=== PATIENT | female | born 1990 | race Hispanic/Latino ===

== ENCOUNTER 2024-09-03 05:09 | Inpatient (IN) | payer MEDICAID, OTHER, SELFPAY ==
[2024-09-03] MEDS ORDERED: Bicitra 30 ML UDCUP PO PRN (05:15)
[2024-09-03] MEDS ORDERED: Tranexamic Acid 1,000 MG/10 ML VIAL IVP PRN (05:15)
[2024-09-03] MEDS ORDERED: CEFAZOLIN 3 GM in Sodium Chloride 0.9% 100 ML IVPB SCH (05:15)
[2024-09-03] MEDS ORDERED: Ondansetron PF 4 MG/2 ML Vial IVP PRN ×4 (05:15→11:58)
[2024-09-03] MEDS ORDERED: Diphenoxylate HCl/Atropine Tablet PO PRN (05:15)
[2024-09-03] MEDS ORDERED: Carboprost 250 MCG/ML AMP IM PRN (05:15)
[2024-09-03] MEDS ORDERED: hydrALAZINE 20 MG/ML VIAL SLOW IVP PRN ×2 (05:15→11:58)
[2024-09-03] MEDS ORDERED: Promethazine HCl 25 MG/ML VIAL IM PRN ×3 (05:15→11:58)
[2024-09-03] MEDS ORDERED: Oxytocin 30 units/NS 500 ML 500 ML IV SCH (05:15)
[2024-09-03] MEDS ORDERED: Lactated Ringer's 1,000 ML IV SCH (05:15)
[2024-09-03] MEDS ORDERED: Misoprostol 200 MCG TAB PR PRN (05:15)
[2024-09-03] MEDS ORDERED: Methylergonovine 0.2 MG/ML VIAL IM PRN (05:15)
[2024-09-03] MEDS ORDERED: Azithromycin 500 MG in Sodium Chloride 0.9% 250 ML 250 ML IVPB SCH (06:15)
[2024-09-03 06:28] VITALS: BMI 42.1
[2024-09-03 06:29] LABS: Hematocrit 39.2 % (34.9-44.5); Hemoglobin 13.7 g/dL (12.0-15.5); Mean Corpuscular HGB CONC 34.9 g/dL (32.0-36.0); Mean Corpuscular Hemoglobin 30.5 pg (27.0-33.0); Mean Corpuscular Volume 87.3 fL (81.6-98.3); Mean Platelet Volume 10.8 fL (7.4-10.4); Platelet Count 183 10x3/uL (150-450); RBC Distribution Width 14.4 % (11.5-14.5); Red Blood Cell (RBC) Count 4.49 10x6/uL (3.90-5.03); White Blood Cell (WBC) Count 5.25 10x3/uL (3.5-10.5)
[2024-09-03] MEDS: Famotidine/PF 20 mg/2ml Vial SLOW IVP PRN (07:03)
[2024-09-03 07:08] LABS: HBsAg Index 0.16 S/CO (0-0.99); Hep B Surf Ag - L&D Non-Reactive S/CO (NonReactive)
[2024-09-03 07:09] LABS: Syphilis Antibody Nonreactive (Nonreactive); Syphilis Antibody Index 0.06 S/CO (<1.00 Non-Reactive)
[2024-09-03 07:10] LABS: HIV (1/2) Antibody/Antigen Non-Reactive (NonReactive); HIV 1/2 INDEX 0.18 S/CO (<1.00)
[2024-09-03] MEDS ORDERED: Hepatitis B Vaccine 10 MCG/0.5 ML SYR ONE (07:15)
[2024-09-03 07:23] LABS: Glucose 104 mg/dL (70-105)
[2024-09-03] MEDS ORDERED: Naloxone HCl 0.4 mg/ml Vial IV PRN (08:48)
[2024-09-03] MEDS ORDERED: diphenhydrAMINE 50 MG/ML VIAL IVP PRN (08:48)
[2024-09-03] MEDS ORDERED: Naloxone HCl 0.4 mg/ml Vial IVP PRN ×2 (08:48)
[2024-09-03] MEDS ORDERED: Moisturizing Cream (Eucerin) 113 GM JAR TOP PRN (08:48)
[2024-09-03] MEDS ORDERED: Morphine 4 MG/ML VIAL SLOW IVP PRN (08:48)
[2024-09-03] MEDS ORDERED: fentaNYL 50 mcg/mL 1 mL Vial SLOW IVP PRN (08:48)
[2024-09-03] MEDS ORDERED: Meperidine HCl/PF 25 MG (1 mL) VIAL SLOW IVP PRN (08:48)
[2024-09-03] MEDS ORDERED: Ketorolac Tromethamine 30 MG (1 mL) VIAL IVP PRN (08:48)
[2024-09-03] MEDS ORDERED: Communication Order-Pharmacy FS SCH (09:00)
[2024-09-03] MEDS ORDERED: Ketorolac Tromethamine 30 MG (1 mL) VIAL IVP SCH (09:00)
[2024-09-03] MEDS ORDERED: Bisacodyl 10 MG SUPP PR PRN (11:58)
[2024-09-03] MEDS ORDERED: diphenhydrAMINE 25 MG CAP PO PRN (11:58)
[2024-09-03] MEDS ORDERED: Lanolin Ointment 7 GM TUBE TOP PRN (11:58)
[2024-09-03] MEDS ORDERED: Boostrix 0.5 ML (Tdap) VIAL (>/=7 yrs of age) IM ONE (15:00)
[2024-09-03] MEDS: Ketorolac Tromethamine 30 MG (1 mL) VIAL IVP SCH (16:09)
[2024-09-03] MEDS: Morphine PF 10 MG/10 ML VIAL ONE (19:47)
[2024-09-03] MEDS: Dexamethasone 10 MG/ML VIAL ONE (19:47)
[2024-09-03] MEDS: Ondansetron PF 4 MG/2 ML Vial ONE (19:47)
[2024-09-03] MEDS: PHENYLEPHRINE-NS 100 MCG/ML 10 ML SYRINGE ONE (19:48)
[2024-09-03] MEDS: Erythromycin Base 0.5% Oint 1 GM TUBE ONE (19:48)
[2024-09-03] MEDS: Oxytocin 10 UNITS/ML VIAL ONE ×2 (19:48)
[2024-09-03] MEDS: Phytonadione Neonatal 1 MG/0.5 ML AMP ONE (19:48)
[2024-09-03] MEDS: Docusate 100 MG CAP PO SCH ×2 (19:49→20:59)
[2024-09-03] MEDS: Ferrous Sulfate 325 MG TAB PO SCH ×2 (19:49→20:55)
[2024-09-03] MEDS: Prenatal Vitamin 1 TAB PO SCH (19:49)
[2024-09-03] MEDS ORDERED: Meperidine HCl/PF 25 MG (1 mL) VIAL IM PRN (21:00)
[2024-09-03] MEDS ORDERED: HYDROcodone/Acetaminophen 5/325 mg Tablet PO PRN (21:00)
[2024-09-04 05:10] LABS: Hematocrit 31.8 % (34.9-44.5); Hemoglobin 11.3 g/dL (12.0-15.5); Mean Corpuscular HGB CONC 35.5 g/dL (32.0-36.0); Mean Corpuscular Hemoglobin 31.8 pg (27.0-33.0); Mean Corpuscular Volume 89.6 fL (81.6-98.3); Mean Platelet Volume 10.7 fL (7.4-10.4); Platelet Count 149 10x3/uL (150-450); RBC Distribution Width 14.6 % (11.5-14.5); Red Blood Cell (RBC) Count 3.55 10x6/uL (3.90-5.03)
[2024-09-04] MEDS: Prenatal Vitamin 1 TAB PO SCH (07:54)
[2024-09-04] MEDS: Simethicone Chewable 80 MG TAB PO PRN (13:14)
[2024-09-04] MEDS: HYDROcodone/Acetaminophen 5/325 mg Tablet PO PRN (13:14)
[2024-09-04] MEDS: Ibuprofen 800 MG TAB PO SCH (13:15)
[2024-09-06 11:41] VITALS: BP 119/74; TEMP 98.2
== END 2024-09-06 14:05 | disposition home or self-care (01) | DRG 787 ==
LOC: CSHLD 05:09 → CSHPP 11:05
PROVIDERS: ADMIT Family Medicine; ATTEND Family Medicine
PROC: 10D00Z1 Extraction of Products of Conception, Low, Open Approach (ICD-10-PCS; principal; 2024-09-03)
PROC: 10D17Z9 Manual Extraction of Products of Conception, Retained, Via Natural or Artificial Opening (ICD-10-PCS; 2024-09-03)
DX: O34.211 Maternal care for low transverse scar from previous cesarean delivery (principal); O72.0 Third-stage hemorrhage; O24.429 Gestational diabetes mellitus in childbirth, unspecified control; O99.214 Obesity complicating childbirth; E66.89 Other obesity not elsewhere classified; Z37.0 Single live birth; Z3A.39 39 weeks gestation of pregnancy; O99.824 Streptococcus B carrier state complicating childbirth
CPT/HCPCS: 36415; 51702; 82947; 85027; 86780; 86850; 86900; 86901; 87340; 87389; J1100; J1885; J2274; J2405; J2590; J3490